=== PATIENT | female | born 1990 | race Asian ===

== ENCOUNTER 2018-03-29 23:42 | Inpatient (IN) | payer OTHER ==
[2018-03-30] MEDS: LACTATED RINGER'S 1,000 ML IV ×4 (01:40→20:46)
[2018-03-30 01:57] LABS: ADD MAN DIFF? NO
[2018-03-30 02:01] LABS: BASOPHILS % 0.4 % (0.0-2.0); EOSINOPHILS % 0.1 % (0.0-7.0); HEMATOCRIT 35.2 % (37.0-47.0); HEMOGLOBIN 12.2 g/dl (12.0-16.0); LYMPHOCYTES # 1.1 10^3/ul (0.8-2.9); LYMPHOCYTES % 13.4 % (15.0-51.0); MEAN CORPUSCULAR HEMOGLOBIN 31.9 pg (29.0-33.0); MEAN CORPUSCULAR HGB CONC 34.7 g/dl (32.0-37.0); MEAN CORPUSCULAR VOLUME 91.9 fl (82.0-101.0); MEAN PLATELET VOLUME 11.3 fl (7.4-10.4); MONOCYTE # 0.5 10^3/ul (0.3-0.9); MONOCYTES % 6.5 % (0.0-11.0); NEUTROPHIL # 6.4 10^3/ul (1.6-7.5); NEUTROPHILS % 78.7 % (39.0-77.0); PLATELET COUNT 234 10^3/UL (140-415); RED BLOOD COUNT 3.83 10^6/ul (4.20-5.40); RED CELL DISTRIBUTION WIDTH 13.3 % (11.5-14.5)
[2018-03-30 02:01] LABS: WHITE BLOOD COUNT 8.1 10^3/ul (4.8-10.8)
[2018-03-30 02:16] LABS: GLUCOSE 114 mg/dl (70-220)
[2018-03-30 02:20] LABS: INR 0.81; PROTIME 11.2 Sec (11.9-14.9); PT RATIO 0.9
[2018-03-30 02:21] LABS: PARTIAL THROMBOPLASTIN TIME 27.1 Sec (25.0-35.0)
[2018-03-30] MEDS ORDERED: BUTORPHANOL 2 MG INJ (07:52)
[2018-03-30] MEDS: BUTORPHANOL 2 MG INJ IV ×2 (07:58→12:58)
[2018-03-30] MEDS: ONDANSETRON 4 MG INJ IV (08:02)
[2018-03-30] MEDS: BETAMET NA PHOS/AC(6 MG/ML) 5ML INJ IM (08:04)
[2018-03-30] MEDS: MAGNESIUM SULFATE 4 GM/100 ML 100 ML IV (08:13)
[2018-03-30] MEDS: MAGNESIUM SULFATE 20 GM/500 ML 500 ML IV ×2 (08:38→17:56)
[2018-03-30 12:15] LABS: HEPATITIS B SURFACE ANTIGEN NEGATIVE (NEGATIVE)
[2018-03-30 13:00] LABS: MAGNESIUM 5.2 mg/dl (1.7-2.5)
[2018-03-30 13:35] LABS: HIV 1&2 ANTIBODY NEGATIVE (NEGATIVE)
[2018-03-30 13:37] LABS: AMPHETAMINE/METHAMPHETAMINE Negative (NEGATIVE); BARBITURATES Negative (NEGATIVE); BENZODIAZEPINES Negative (NEGATIVE); CANNABINOIDS Negative (NEGATIVE); COCAINE Negative (NEGATIVE); OPIATES Positive (NEGATIVE)
[2018-03-30] MEDS ORDERED: GLUCOSE GEL 15 GRAM TUBE PO ×2 (16:30)
[2018-03-30] MEDS ORDERED: GLUCAGON 1 MG INJ IM (16:30)
[2018-03-30] MEDS ORDERED: GLUCOSE GEL 15 GRAM TUBE BUCCAL (16:30)
[2018-03-30] MEDS ORDERED: DEXTROSE 50% 50 ML SYRINGE IV ×2 (16:30)
[2018-03-30] MEDS ORDERED: INSULIN ASPART [NOVOLOG] 3 ML PEN SC ×2 (17:00→18:30)
[2018-03-30 18:55] LABS: MAGNESIUM 6.2 mg/dl (1.7-2.5)
[2018-03-30] MEDS ORDERED: FENTAnyl 2MCG/ML-ROPIV 0.2% 100 ML (20:49)
[2018-03-30 22:22] LABS: RAPID PLASMA REAGIN NONREACTIVE (NR)
[2018-03-31] MEDS ORDERED: MISOPROSTOL 200 MCG TAB PR ×2 (03:00→06:00)
[2018-03-31] MEDS ORDERED: METHYLERGONOVINE 0.2 MG INJ IM ×2 (03:00→06:00)
[2018-03-31] MEDS ORDERED: CARBOPROST 250 MCG INJ IM ×2 (03:00→06:00)
[2018-03-31] MEDS ORDERED: IBUPROFEN 600 MG TAB PO (03:00)
[2018-03-31] MEDS ORDERED: OXYTOCIN 30 UNITS/LR 500 ML IV ×3 (03:00→06:00)
[2018-03-31] MEDS ORDERED: LIDOCAINE 1% (MPF) 30 ML INJ INJ (03:00)
[2018-03-31] MEDS: OXYTOCIN 30 UNITS/LR 500 ML IV ×2 (04:50→06:06)
[2018-03-31] MEDS: MINERAL OIL LIGHT 10 ML VIAL TOP (05:23)
[2018-03-31] MEDS: LACTATED RINGER'S 1,000 ML IV* ×3 (05:32→21:32)
[2018-03-31] MEDS ORDERED: HYDROCODONE/APAP (5/325) TAB PO (06:00)
[2018-03-31] MEDS: IBUPROFEN 600 MG TAB PO ×4 (06:00→23:37)
[2018-03-31] MEDS: LEVOTHYROXINE 112 MCG TAB PO (08:14)
[2018-03-31] MEDS: BENZOCAINE 20% 56 ML SPRAY TOP (09:02)
[2018-03-31] MEDS: WITCH HAZEL/GLYCERIN PAD PR (09:02)
[2018-03-31] MEDS: LANOLIN 7 GM TUBE TOP (09:02)
[2018-04-01] MEDS: IBUPROFEN 600 MG TAB PO ×4 (05:53→23:29)
[2018-04-01] MEDS: LEVOTHYROXINE 112 MCG TAB PO (05:53)
[2018-04-01 09:14] LABS: ADD MAN DIFF? NO
[2018-04-01 09:22] LABS: BASOPHIL # 0.1 10^3/ul (0.0-0.1); BASOPHILS % 0.4 % (0.0-2.0); EOSINOPHILS % 0.2 % (0.0-7.0); HEMATOCRIT 34.1 % (37.0-47.0); HEMOGLOBIN 11.4 g/dl (12.0-16.0); LYMPHOCYTES # 1.8 10^3/ul (0.8-2.9); LYMPHOCYTES % 13.5 % (15.0-51.0); MEAN CORPUSCULAR HEMOGLOBIN 31.6 pg (29.0-33.0); MEAN CORPUSCULAR HGB CONC 33.4 g/dl (32.0-37.0); MEAN CORPUSCULAR VOLUME 94.5 fl (82.0-101.0); MEAN PLATELET VOLUME 11.3 fl (7.4-10.4); MONOCYTE # 0.7 10^3/ul (0.3-0.9); MONOCYTES % 5.6 % (0.0-11.0); NEUTROPHIL # 10.4 10^3/ul (1.6-7.5); PLATELET COUNT 238 10^3/UL (140-415); RED BLOOD COUNT 3.61 10^6/ul (4.20-5.40); RED CELL DISTRIBUTION WIDTH 13.6 % (11.5-14.5)
[2018-04-01 09:22] LABS: WHITE BLOOD COUNT 13.1 10^3/ul (4.8-10.8)
[2018-04-02] MEDS: IBUPROFEN 600 MG TAB PO ×2 (05:36→12:00)
[2018-04-02] MEDS: LEVOTHYROXINE 112 MCG TAB PO (06:39)
[2018-04-02] MEDS: DIPHTH/TET/ACEL PERTUSS (ADULT) 0.5 ML VIAL IM* (09:00)
== END 2018-04-02 16:56 | disposition home or self-care (01) | DRG 775 ==
LOC: OBT 23:42 → PP1 03-31 07:57 → L-D 23:42
PROVIDERS: Obstetrics & Gynecology
PROC: 10E0XZZ Delivery of Products of Conception, External Approach (ICD-10-PCS; principal; 2018-03-30)
PROC: 0HQ9XZZ Repair Perineum Skin, External Approach (ICD-10-PCS; 2018-03-30)
PROC: 3E033VJ Introduction of Other Hormone into Peripheral Vein, Percutaneous Approach (ICD-10-PCS; 2018-03-30)
DX: O60.14X0 Preterm labor third trimester with preterm delivery third trimester, not applicable or unspecified (principal); O24.429 Gestational diabetes mellitus in childbirth, unspecified control; O69.81X0 Labor and delivery complicated by cord around neck, without compression, not applicable or unspecified; O70.0 First degree perineal laceration during delivery; O99.284 Endocrine, nutritional and metabolic diseases complicating childbirth; E03.9 Hypothyroidism, unspecified; Z3A.36 36 weeks gestation of pregnancy; Z37.0 Single live birth
CPT/HCPCS: 62319; 76815; 76818; 80307; 82947; 82962; 83735; 85025; 85610; 85730; 86592; 86703; 86850; 86900; 86901; 87340; 99464